=== PATIENT | female | born 1940 | race Caucasian/White ===

== ENCOUNTER 2017-02-25 09:28 | Emergency (ER) | payer MEDICARE, BC ==
[2017-02-25 10:07] LABS: #Lymphocytes 0.8 thou/uL (1.20-3.40); #Monocytes 0.8 thou/uL (0.11-0.59); #Neutrophils 4.8 thou/uL (1.40-6.50); %Basophils 0.5 % (0.0-1.0); %Eosinophils 0.3 % (0.0-10.0); %Lymphocytes 12.4 % (21.0-51.0); %Monocytes 11.6 % (0.0-10.0); %Neutrophils 75.3 % (42.0-75.0); Hemoglobin 11.7 g/dL (12.0-16.0); Mean Corpuscular HGB CONC 31.7 g/dL (32.0-36.0); Mean Corpuscular Hemoglobin 28.5 pg (27.0-31.0); Mean Corpuscular Volume 89.9 fl (81.0-99.0); Mean Platelet Volume 6.6 fL (7.4-10.4); Platelet Count 156 thou/uL (130-400); RBC Distribution Width 13.6 % (11.5-14.5); Red Blood Cell (RBC) Count 4.09 mill/uL (4.20-5.40); White Blood Cell (WBC) Count 6.4 thou/uL (4.8-10.8)
[2017-02-25 10:29] LABS: ALT (SGPT) 7 U/L (8-55); AST (SGOT) 15 U/L (5-34); Albumin 3.8 g/dL (3.4-4.8); Alkaline Phosphatase 66 U/L (40-150); Anion Gap 16 mmol/L (10-20); BUN (Urea Nitrogen) 29 mg/dL (9.8-20.1); Bilirubin, Total 0.4 mg/dL (0.2-1.2); CK (CPK) 182 U/L (29-168); Calc. Creatinine Clearance 0 mL/min (70-130); Calcium 8.9 mg/dL (7.8-10.44); Carbon Dioxide 24 mmol/L (23-31); Chloride 104 mmol/L (98-107); Estimated GFR-MDRD 53; Globulin 2.6 g/dL (2.4-3.5); Glucose 105 mg/dL (83-110); Potassium 3.7 mmol/L (3.5-5.1); Protein, Total 6.4 g/dL (6.0-8.3); Sodium 140 mmol/L (136-145)
--- NOTE | 2017-02-25 10:31 | RAD ---
PORTABLE CHEST 1 VIEW: DATE: 02/25/17. TIME: 10: 11 a.m. HISTORY: Cough. FINDINGS: Comparison is made with the exam of 04/25/16. The heart is enlarged. The aorta is tortuous. No confluent areas of consolidation, pneumothorax, fr ank pulmonary edema, or large effusions are seen. Blunting of the costophrenic angles is stable. POS: [facility]
[2017-02-25 10:37] LABS: CKMB 0.6 ng/mL (0-6.6); Troponin I 0.019 ng/mL (< 0.028)
== END 2017-02-25 11:44 | disposition home or self-care (01) ==
LOC: ERS 09:28
DX: J11.1 Influenza due to unidentified influenza virus with other respiratory manifestations (principal); I10 Essential (primary) hypertension; J44.9 Chronic obstructive pulmonary disease, unspecified
CPT/HCPCS: 36415; 71010; 80053; 82550; 82553; 83605; 84484; 85025; 87040; 93005; 94640; 94760; J7620

== ENCOUNTER 2017-03-27 10:18 | Outpatient (CLI) | payer MEDICARE, BC | END 2017-03-27 10:19 | disposition home or self-care (01) | LOC: BICMAMMO 10:18 | PROVIDERS: ATTEND Family Medicine | DX: Z13.820 Encounter for screening for osteoporosis (principal) | CPT/HCPCS: 77080 ==

== ENCOUNTER 2017-10-23 10:50 | Outpatient (CLI) | payer MEDICARE, BC ==
--- NOTE | 2017-10-23 12:03 | RAD ---
CHEST 2 VIEWS: Date: 10/23/17 HISTORY: Dyspnea. COMPARISON: Radiograph from 2017. FINDINGS: Lungs are hypoinflated with vascular crowding. There are some nodular densities in the right lower lo be, which are new. Mild exaggerated thoracic kyphosis. IMPRESSION: Nodular opacities right lung base. This may be infectious in nature. Follow-up recommended. POS: [facility]
== END 2017-10-23 10:51 | disposition home or self-care (01) ==
LOC: RAD 10:50
PROVIDERS: ATTEND Internal Medicine
DX: R06.00 Dyspnea, unspecified (principal); R91.8 Other nonspecific abnormal finding of lung field
CPT/HCPCS: 71046

== ENCOUNTER 2017-12-13 12:30 | Inpatient (IN) | payer MEDICARE, BC ==
[2018-01-01 13:34] VITALS: BMI 30.4
--- NOTE | 2018-01-03 09:27 | HP ---
HISTORY OF PRESENT ILLNESS: The patient is a 77-year-old female with a long history of progressive p roblems with degenerative arthritis of both knees, right symptomatic more than left. She has had no injury. She has had progressive problems despite restriction of activities, and several cortisone in jections. The pain is now interfering with day to day activities, including walking, getting dressed and sleeping. PAST MEDICAL HISTORY: The patient has history of COPD, followed by Dr. Day and she has been seen and cleared for surgery by him. She also has history of atherosclerotic cardiovascular disease and has 2 stents and has been seen and cleared for surgery by Dr. Blanco. She has had a DVT and PE in the past, but is currently on no other anticoagulants other than aspirin. She also has DJD of her left knee which currently has been being managed conservatively. She lives at [facility] and use a walker most of the time for ambulation. CURRENT MEDICATIONS: Calcium, multivitamins, Bleo inhaler, simvastatin, amlodipine, iron, venlafaxin e, Uloric, Tylenol, Fiorinal, gabapentin. ALLERGIES: She is allergic to PENICILLIN. FAMILY HISTORY/SOCIAL HISTORY/REVIEW OF SYSTEMS: Otherwise unremarkable. PHYSICAL EXAMINATION: GENERAL: Reveals a healthy elderly female. HEENT: Unremarkable. NECK: Supple. CHEST: Clear. HEART: Regular rate and rhythm. ABDOMEN: Soft, nontender. PELVIC/RECTAL/BREAST: Exams are deferred. EXTREMITIES: Pertinent findings of the right knee. There is puffiness, no definite effusion. There is slight varus. There is tenderness over the medial joint line. Range of motion is 3-105 degrees. There is no instability. There are palpable distal pulses, there is a right antalgic gait. Neurovascular exam is intact. LABORATORY AND X-RAY FINDINGS: X-rays reveal degenerative narrowing medially. MRI scan reveals medi al and lateral meniscal tears with significant DJD of the medial compartment and a 2 mm step off of t he weightbearing surfaces with significant osteochondral defect. IMPRESSION: 1. Degenerative arthritis, both knees, right symptomatic more than left. 2. History of atherosclerotic cardiovascular disease. 3. History of deep venous thrombosis and pulmonary embolus. 4. Chronic obstructive pulmonary disease. PLAN: Right total knee replacement. The nature of the surgery, length of recovery, and potential co mplications such as infection, loss of motion, incomplete relief, delayed wound healing, neurovascula r injury, thromboembolic phenomena, possible transfusion, and need for revision have been discussed i n detail.
[2018-01-07] MEDS ORDERED: Vancomycin HCl 1.5 GM in Sodium Chloride 0.9% 250 ML 300 ML IVPB SCH ×2 (07:45→20:00)
[2018-01-07] MEDS ORDERED: Midazolam HCl 2 mg/2 ml Vial ONE (07:52)
[2018-01-07] MEDS ORDERED: Fentanyl 100 MCG/2 ML VIAL ONE ×2 (07:52→12:02)
[2018-01-07] MEDS ORDERED: CEFAZOLIN 2 GM/50 ML-DEXTROSE 2 GM in Premix Bag 1 BAG IVPB SCH (08:00)
[2018-01-07] MEDS ORDERED: Levofloxacin 500 mg/D5W 100 ml Premix Bag ONE (08:39)
[2018-01-07] MEDS ORDERED: Sodium Chloride 0.9% 100 ML ONE (08:39)
[2018-01-07] MEDS ORDERED: Ketorolac Tromethamine 30 MG/ML VIAL IVP PRN (08:57)
[2018-01-07] MEDS ORDERED: Ondansetron PF 4 MG/2 ML Vial IVP PRN ×2 (08:57→12:38)
[2018-01-07] MEDS ORDERED: Promethazine HCl 25 MG/ML VIAL IM PRN ×2 (08:57→10:20)
[2018-01-07] MEDS ORDERED: traMADol HCl 50 MG TAB PO PRN ×4 (08:57→12:38)
[2018-01-07] MEDS ORDERED: HYDROcodone/Acetaminophen 10/325 mg Tablet PO PRN ×2 (08:57)
[2018-01-07] MEDS ORDERED: Zolpidem Tartrate 5 MG TAB PO PRN ×2 (08:57→12:38)
[2018-01-07] MEDS ORDERED: Fentanyl 100 MCG/2 ML VIAL IV PRN (08:58)
[2018-01-07] MEDS ORDERED: Promethazine HCl 25 MG/ML VIAL SLOW IVP PRN ×2 (10:20→12:38)
[2018-01-07] MEDS ORDERED: Ondansetron HCl/PF 4 MG/2 ML Vial IVP PRN (10:20)
[2018-01-07] MEDS ORDERED: Morphine 10 MG/ML VIAL ONE (10:23)
[2018-01-07] MEDS ORDERED: Bupivacaine/Epinephrine 0.25% 30 ML VIAL ONE (10:26)
[2018-01-07] MEDS ORDERED: Tranexamic Acid 1,000 MG in Sodium Chloride 0.9% 100 ML IVPB SCH ×2 (11:45→12:38)
--- NOTE | 2018-01-07 12:04 | OP ---
DATE OF PROCEDURE: 01/07/2018 SURGEON: Buzz Fuchs M.D. FISHER HAND LINE: Carolyn Lynn PA-C. ANESTHESIA: General plus adductor canal and sciatic nerve blocks. PREOPERATIVE DIAGNOSIS: Degenerative arthritis, right knee. POSTOPERATIVE DIAGNOSIS: Degenerative arthritis, right knee. PROCEDURES: Right total knee replacement with computer-assisted navigation with cemented Neeraj Tri athlon components (#5 femoral component, #4 tibial baseplate with 11 mm CS plastic insert and all kenyatta stic A29 patellar component). NARRATIVE REPORT: After satisfactory anesthesia was induced in supine position, sequential compressi on device was placed on the non-operative leg throughout the procedure. The right leg was then prepp ed and draped in the routine sterile fashion. The right leg was elevated and exsanguinated with an E smarch bandage and the tourniquet inflated to 300 mmHg. A gently curved medial parapatellar incision was made and carried down to subcutaneous tissues and bleeding points were controlled with Bovie cau damien. A medial parapatellar arthrotomy was performed. The patella was dislocated laterally and port ions of the fat pad were excised for exposure. There was significant tricompartmental degenerative a rthritis with areas of cartilage degeneration and small areas of exposed bone. Osteophytes and menis cindy remnants removed. Using the [employer] pinless navigation system and the appropriate guides, the di stal femoral and proximal tibial articular surfaces were excised with an oscillating saw to accept th e trial components. It was felt that #5 femoral component and #4 tibial baseplate with 11 mm CS plas tic insert gave appropriate size, fit and stability. The patellar articular surface was excised to a ccept an all plastic A29 patellar component. There was good range of motion, good stability and good patellar tracking. The trial components were removed. The knee was copiously irrigated with pulsat ile lavage. The bony surfaces were thoroughly cleaned and dried. The permanent components were then cemented in a single stage using 1 package of cement premixed with 1 gram of tobramycin powder. Exc ess cement was removed. There was again good fit and stability of the components. The knee was agai n copiously irrigated. The skin was infiltrated with 30 mL of 0.25% Marcaine with epinephrine. The medial retinaculum and quadriceps mechanism was closed with interrupted #2 Vicryl and a running #2 Qu ill. Subcutaneous tissues were closed with running 0 Quill suture and the skin was closed with runni ng subcuticular 3-0 Monoderm and SurgiSeal skin adhesive. A sterile bulky compressive dressing was a pplied. The tourniquet was deflated after 74 minutes. The foot promptly pinked up and sequential co mpression device was placed on the operated leg. She was awakened and taken to recovery room in stab le condition. There were no apparent intraoperative complications. The estimated blood loss was les s than 100 mL.
[2018-01-07] MEDS ORDERED: diphenhydrAMINE 25 MG CAP PO PRN (12:38)
[2018-01-07] MEDS ORDERED: Acetaminophen 325 MG TAB PO PRN (12:38)
[2018-01-07] MEDS ORDERED: Fentanyl 100 MCG/2 ML VIAL SLOW IVP PRN ×2 (12:38)
[2018-01-07] MEDS ORDERED: HYDROcodone/Acetaminophen 7.5/325 mg Tablet PO PRN (12:38)
[2018-01-07] MEDS ORDERED: Nystatin Powder 15 GM BOT TOP PRN (12:38)
[2018-01-07] MEDS ORDERED: Clotrimazole 1 % Cream 30 GM TUBE TOP PRN (12:38)
[2018-01-07] MEDS ORDERED: Aspirin 81 mg Enteric Coated Tablet PO SCH (12:45)
[2018-01-07] MEDS ORDERED: Fluticasone Propionate Nasal Spray 16 gm Bottle NASAL SCH (13:00)
[2018-01-07] MEDS ORDERED: Carvedilol 3.125 MG TAB PO SCH (13:00)
[2018-01-07] MEDS ORDERED: Multivitamin W/ Minerals 1 TAB PO SCH (13:00)
[2018-01-07] MEDS ORDERED: Senokot S 8.6-50 MG TAB PO SCH (13:00)
[2018-01-07] MEDS ORDERED: Loratadine 10 MG TAB PO SCH (13:00)
[2018-01-07] MEDS ORDERED: Ferrous Gluconate 324 MG TAB PO SCH (13:00)
[2018-01-07] MEDS ORDERED: Venlafaxine XR 37.5 MG CAP PO SCH (13:00)
[2018-01-07] MEDS ORDERED: Simvastatin 40 MG TAB PO SCH ×2 (13:00→21:00)
--- NOTE | 2018-01-07 13:21 | RAD ---
RIGHT KNEE RADIOGRAPHS TWO VIEWS: Date: 01-07-18 Provided Clinical History: Post op. FINDINGS: No comparison. Post-operative changes of right total knee arthroplasty are demonstrated. Post-operati ve soft tissue gas is seen. No evidence for an acute abnormality. IMPRESSION: Post operative change as above. POS: [facility]
[2018-01-07] MEDS ORDERED: Diabetic Tussin 200 MG/10 ML UDCUP PO PRN (13:32)
[2018-01-07] MEDS ORDERED: Loperamide HCl 2 MG CAP PO PRN (13:32)
[2018-01-07] MEDS ORDERED: Eucerin (Mineral Oil/Petrolatum,White) 30 gm Jar TOP PRN (13:32)
[2018-01-07] MEDS ORDERED: hydrALAZINE 20 MG/ML VIAL SLOW IVP PRN (13:32)
[2018-01-07] MEDS ORDERED: Cepastat Lozenges 1 LOZ PO PRN (13:32)
[2018-01-07] MEDS ORDERED: Artificial Tears 18 DROP/0.9 ML EA EYE PRN (13:32)
--- NOTE | 2018-01-07 13:34 | PDOC.PN ---
- Subjective Encounter Start Date: 01/07/18 Encounter Start Time: 13:30 -: old records requested/rev Patient seen and examined. pt is admitted for right knee replacement consulted for medical management - Objective MAR Reviewed: Yes Vital Signs & Weight: Vital Signs (12 hours) Temp Pulse Resp BP Pulse Ox 01/07/18 12:45 97.8 F 73 18 147/66 H 98 Weight Weight 200 lb Additional Labs: old labs and investigation reviewed in [facility] Radiology Reviewed by me: Yes (knee xray reviewed) Phys Exam - Physical Examination Constitutional: NAD HEENT: PERRLA, moist MMs, sclera anicteric Neck: no JVD, supple Respiratory: no wheezing, no rales, no rhonchi Cardiovascular: RRR, no significant murmur, no rub Gastrointestinal: soft, non-tender, no distention, positive bowel sounds Musculoskeletal: no edema, pulses present right knee with dressing, nerve block +, cardona+ Neurological: non-focal, normal sensation, moves all 4 limbs Lymphatic: no nodes Psychiatric: normal affect, A&O x 3 Skin: no rash, normal turgor Dx/Plan (1) Status post total right knee replacement Code(s): Z96.651 - PRESENCE OF RIGHT ARTIFICIAL KNEE JOINT Status: Acute (2) Anxiety and depression Code(s): F41.9 - ANXIETY DISORDER, UNSPECIFIED; F32.9 - MAJOR DEPRESSIVE DISORDER, SINGLE EPISODE, UNSPECIFIED Status: Chronic (3) Dyslipidemia Code(s): E78.5 - HYPERLIPIDEMIA, UNSPECIFIED Status: Chronic (4) Hypertension Code(s): I10 - ESSENTIAL (PRIMARY) HYPERTENSION Status: Chronic (5) Migraine headache Code(s): G43.909 - MIGRAINE, UNSP, NOT INTRACTABLE, WITHOUT STATUS MIGRAINOSUS Status: Chronic (6) Obesity (BMI 30.0-34.9) Code(s): E66.9 - OBESITY, UNSPECIFIED Status: Chronic (7) H/O deep venous thrombosis Code(s): Z86.718 - PERSONAL HISTORY OF OTHER VENOUS THROMBOSIS AND EMBOLISM Status: Chronic (8) Chronic anticoagulation Code(s): Z79.01 - HALFWAY (CURRENT) USE OF ANTICOAGULANTS Status: Chronic (9) COPD (chronic obstructive pulmonary disease) Status: Chronic - Plan cont current plan of care, plan discussed w/ family * send urine culture * home medication reconciled * continue aspirin daily and xarelto daily * medication reviewed as below * symptomatic treatment * PT/OT as per [facility] protocol * pain controlled with pain meds * discussed with family bedside * pepcid for GI prophylaxis * nerve block as per anesthesia * code status- full code. Review of Systems - Review of Systems Eyes: negative: Pain, Vision Change, Conjunctivae Inflammation, Eyelid Inflammation, Redness, Other ENT: negative: Ear Pain, Ear Discharge, Nose Pain, Nose Discharge, Nose Congestion, Mouth Pain, Mouth Swelling, Throat Pain, Throat Swelling, Other Respiratory: negative: Cough, Dry, Shortness of Breath, Hemoptysis, SOB with Excertion, Pleuritic Pain, Sputum, Wheezing Cardiovascular: negative: chest pain, palpitations, orthopnea, paroxysmal nocturnal dyspnea, edema, light headedness, other Gastrointestinal: negative: Nausea, Vomiting, Abdominal Pain, Diarrhea, Constipation, Melena, Hematochezia, Other Genitourinary: negative: Dysuria, Frequency, Incontinence, Hematuria, Retention , Other Musculoskeletal: negative: Neck Pain, Shoulder Pain, Arm Pain, Back Pain, Hand Pain, Leg Pain, Foot Pain, Other Skin: negative: Rash, Lesions, Pablo, Bruising, Other - Medications/Allergies Allergies/Adverse Reactions: Allergies Allergy/AdvReac Type Severity Reaction Status Date / Time azithromycin Allergy Verified 01/01/18 13:34 Penicillins Allergy Verified 01/01/18 13:34 Medications: Current Medications Acetaminophen (Tylenol) 650 mg PO Q4H PRN PRN Reason: JUDD/ T > 101F; Mild Pain (1-3) Hydrocodone Bitart/Acetaminophen ([place] 7.5/325) 1 tab PO Q4H PRN PRN Reason: Mild Pain (1-3) Hydrocodone Bitart/Acetaminophen ([place] 7.5/325) 2 tab PO Q4H PRN PRN Reason: Moderate Pain (4-6) Aspirin (Ecotrin) 81 mg PO DAILY [facility] Aspirin (Ecotrin) 81 mg PO NOW [facility] Stop: 01/07/18 14:45 Candesartan Cilexetil (Atacand) 4 mg PO DAILY [facility] Candesartan Cilexetil (Atacand) 4 mg PO NOW [facility] Stop: 01/07/18 15:00 Carvedilol (Coreg) 3.125 mg PO BID [facility] Carvedilol (Coreg) 3.125 mg PO NOW [facility] Stop: 01/07/18 15:00 Clotrimazole (Lotrimin 1% Cream) 0 gm TOP BID PRN PRN Reason: Rash/Topical Irritation Diphenhydramine HCl (Benadryl) 25 mg PO Q6H PRN PRN Reason: Itching Fentanyl (Sublimaze) 50 mcg SLOW IVP Q30MIN PRN PRN Reason: Moderate Pain (4-6) Fentanyl (Sublimaze) 100 mcg SLOW IVP Q1H PRN PRN Reason: Severe Pain (7-10) Ferrous Gluconate (Fergon) 324 mg PO BID [facility] Ferrous Gluconate (Fergon) 324 mg PO NOW [facility] Stop: 01/07/18 15:00 Fluticasone Propionate (Flonase Nasal [place]) 0 gm NASAL DAILY [facility] Fluticasone Propionate (Flonase Nasal [place]) 0 gm NASAL NOW [facility] Stop: 01/07/18 15:00 Vancomycin HCl 1.5 gm/ Sodium (Chloride) 300 mls @ 200 mls/hr IVPB [facility] Stop: 01/07/18 15:00 Cefazolin Sodium/Dextrose 2 gm (/ Device) 50 mls @ 100 mls/hr IVPB [facility] Stop: 01/07/18 15:00 Ropivacaine 250 ml/ Device 250 mls @ 10 mls/hr [facility] BLCK [facility] Levofloxacin 500 mg/ Device 100 mls @ 100 mls/hr IVPB 0900 [facility] Stop: 01/08/18 09:59 Sodium Chloride (Normal Saline 0.9%) 1,000 mls @ 100 mls/hr IV .Q10H [facility] Vancomycin HCl 1.5 gm/ Sodium (Chloride) 300 mls @ 200 mls/hr IVPB 2000 [facility] Stop: 01/07/18 23:59 Iron/Minerals/Multivitamins (Theragran M) 1 tab PO DAILY [facility] Iron/Minerals/Multivitamins (Theragran M) 1 tab PO NOW [facility] Stop: 01/07/18 15:00 Ketorolac Tromethamine (Toradol) 15 mg IVP Q8HR [facility] Stop: 01/09/18 14:01 Loratadine (Claritin) 10 mg PO DAILY [facility] Loratadine (Claritin) 10 mg PO NOW [facility] Stop: 01/07/18 15:00 Meclizine HCl (Antivert) 25 mg PO QID PRN PRN Reason: Dizziness Nystatin (Mycostatin Powder) 0 gm TOP BID PRN PRN Reason: Rash/Topical Irritation Ondansetron HCl (Zofran) 4 mg IVP Q6H PRN PRN Reason: Nausea/Vomiting Promethazine HCl (Phenergan) 12.5 mg IM Q4H PRN PRN Reason: Nausea Promethazine HCl (Phenergan) 12.5 mg SLOW IVP Q4H PRN PRN Reason: Nausea/Vomiting Rivaroxaban (Xarelto) 10 mg PO DAILY [facility] Senna/Docusate Sodium (Senokot S) 2 tab PO BID [facility] Senna/Docusate Sodium (Senokot S) 2 tab PO NOW [facility] Stop: 01/07/18 15:00 Simvastatin (Zocor) 40 mg PO DAILY [facility] Simvastatin (Zocor) 40 mg PO NOW [facility] Stop: 01/07/18 15:00 Sodium Chloride (Flush - Normal Saline) 10 ml IVF PRN PRN PRN Reason: Saline Flush Tramadol HCl (Ultram) 100 mg PO Q6H PRN PRN Reason: Moderate to Severe Pain (6-10) Tramadol HCl (Ultram) 50 mg PO Q6H PRN PRN Reason: Mild-Moderate Pain (1-5) Venlafaxine HCl (Effexor Xr) 37.5 mg PO DAILY [facility] Venlafaxine HCl (Effexor Xr) 37.5 mg PO NOW [facility] Stop: 01/07/18 15:00 Zolpidem Tartrate (Ambien) 5 mg PO HSPRN PRN PRN Reason: Insomnia
[2018-01-07] MEDS ORDERED: Ropivacaine 0.5% HCl/PF (150 MG/30 ML VIAL) ONE (14:18)
[2018-01-07] MEDS ORDERED: Bupivacaine 0.25% HCL 30 ML VIAL ONE (14:18)
[2018-01-07] MEDS: Ketorolac Tromethamine 30 MG/ML VIAL IVP SCH ×2 (14:25→21:25)
[2018-01-07] MEDS: HYDROcodone/Acetaminophen 7.5/325 mg Tablet PO PRN ×2 (14:26→18:37)
[2018-01-07] MEDS: Sodium Chloride 0.9% 1,000 ML IV SCH ×2 (14:29→22:15)
[2018-01-07] MEDS ORDERED: Ketorolac Tromethamine 30 MG/ML VIAL ONE (15:17)
[2018-01-07] MEDS ORDERED: PROPOFOL 200 MG/20 ML VIAL ONE (15:17)
[2018-01-07] MEDS ORDERED: Ondansetron PF 4 MG/2 ML Vial ONE (15:17)
[2018-01-07] MEDS: Meclizine HCl 25 MG TAB PO PRN (15:51)
[2018-01-07] MEDS: Carvedilol 3.125 MG TAB PO SCH (20:16)
[2018-01-07] MEDS: Famotidine 20 MG TAB PO SCH (20:16)
[2018-01-07] MEDS: Senokot S 8.6-50 MG TAB PO SCH (20:17)
[2018-01-07] MEDS: Venlafaxine XR 37.5 MG CAP PO SCH (20:17)
[2018-01-07] MEDS: Ferrous Gluconate 324 MG TAB PO SCH (20:17)
[2018-01-08 05:24] LABS: Hemoglobin 10.1 g/dL (12.0-16.0); Mean Corpuscular HGB CONC 30.5 g/dL (32.0-36.0); Mean Corpuscular Hemoglobin 27.4 pg (27.0-31.0); Mean Corpuscular Volume 89.9 fL (78.0-98.0); Platelet Count 185 thou/uL (130-400); RBC Distribution Width 13.7 % (11.5-14.5); Red Blood Cell (RBC) Count 3.67 mill/uL (4.20-5.40); White Blood Cell (WBC) Count 7.7 thou/uL (4.8-10.8)
[2018-01-08] MEDS: Ketorolac Tromethamine 30 MG/ML VIAL IVP SCH ×3 (06:43→21:26)
[2018-01-08] MEDS: HYDROcodone/Acetaminophen 7.5/325 mg Tablet PO PRN ×2 (08:22→12:33)
[2018-01-08] MEDS: Rivaroxaban 10 MG TAB PO SCH (08:26)
[2018-01-08] MEDS: Famotidine 20 MG TAB PO SCH ×2 (08:27→21:24)
[2018-01-08] MEDS: Multivitamin W/ Minerals 1 TAB PO SCH (08:27)
[2018-01-08] MEDS: Carvedilol 3.125 MG TAB PO SCH ×2 (08:27→21:25)
[2018-01-08] MEDS: Aspirin 81 mg Enteric Coated Tablet PO SCH (08:27)
[2018-01-08] MEDS: Fluticasone Propionate Nasal Spray 16 gm Bottle NASAL SCH (08:29)
[2018-01-08] MEDS: Ferrous Gluconate 324 MG TAB PO SCH ×2 (08:29→21:24)
[2018-01-08] MEDS: Sodium Chloride 0.9% 1,000 ML IV SCH ×2 (08:34→18:09)
[2018-01-08] MEDS: Senokot S 8.6-50 MG TAB PO SCH ×2 (08:35→21:25)
[2018-01-08] MEDS: Loratadine 10 MG TAB PO SCH (08:35)
[2018-01-08] MEDS ORDERED: Simvastatin 40 MG TAB PO SCH (09:00)
[2018-01-08] MEDS: Meclizine HCl 25 MG TAB PO PRN (09:00)
[2018-01-08] MEDS ORDERED: Venlafaxine XR 37.5 MG CAP PO SCH (09:00)
--- NOTE | 2018-01-08 09:50 | PDOC.PN ---
- Subjective Encounter Start Date: 01/08/18 Encounter Start Time: 07:40 Patient seen and examined. No new complaints. No overnight events - Objective Resuscitation Status: Resuscitation Status FULL:Full Resuscitation MAR Reviewed: Yes Vital Signs & Weight: Vital Signs (12 hours) Temp Pulse Resp BP Pulse Ox 01/08/18 08:33 98.8 F 80 15 152/82 H 92 L 01/08/18 04:31 97.8 F 70 20 117/69 94 L 01/07/18 23:37 98 F 66 20 107/66 95 Weight Weight 200 lb I&O: 01/07/18 01/08/18 01/09/18 06:59 06:59 06:59 Intake Total 1341.0 1560 Output Total 1100 900 Balance 241.0 660 Result Diagrams: 01/08/18 04:29 Phys Exam - Physical Examination Constitutional: NAD HEENT: PERRLA, moist MMs, sclera anicteric Neck: no JVD, supple Respiratory: no wheezing, no rales, no rhonchi Cardiovascular: RRR, no significant murmur, no rub Gastrointestinal: soft, non-tender, no distention, positive bowel sounds right knee with dressing, nerve block+ Musculoskeletal: no edema, pulses present Neurological: non-focal, normal sensation, moves all 4 limbs Psychiatric: normal affect, A&O x 3 Skin: no rash, normal turgor Dx/Plan (1) Status post total right knee replacement Code(s): Z96.651 - PRESENCE OF RIGHT ARTIFICIAL KNEE JOINT Status: Acute (2) Anxiety and depression Code(s): F41.9 - ANXIETY DISORDER, UNSPECIFIED; F32.9 - MAJOR DEPRESSIVE DISORDER, SINGLE EPISODE, UNSPECIFIED Status: Chronic (3) Dyslipidemia Code(s): E78.5 - HYPERLIPIDEMIA, UNSPECIFIED Status: Chronic (4) Hypertension Code(s): I10 - ESSENTIAL (PRIMARY) HYPERTENSION Status: Chronic (5) Migraine headache Code(s): G43.909 - MIGRAINE, UNSP, NOT INTRACTABLE, WITHOUT STATUS MIGRAINOSUS Status: Chronic (6) Obesity (BMI 30.0-34.9) Code(s): E66.9 - OBESITY, UNSPECIFIED Status: Chronic (7) H/O deep venous thrombosis Code(s): Z86.718 - PERSONAL HISTORY OF OTHER VENOUS THROMBOSIS AND EMBOLISM Status: Chronic (8) Chronic anticoagulation Code(s): Z79.01 - STOVE FITTER (CURRENT) USE OF ANTICOAGULANTS Status: Chronic (9) COPD (chronic obstructive pulmonary disease) Status: Chronic (10) Anemia, normocytic normochromic Code(s): D64.9 - ANEMIA, UNSPECIFIED Status: Chronic - Plan cont current plan of care, PT/OT * medically stable * medication reviewed as below * symptomatic treatment * continue PT/OT * nerve block as per anesthesia Review of Systems - Review of Systems ENT: negative: Ear Pain, Ear Discharge, Nose Pain, Nose Discharge, Nose Congestion, Mouth Pain, Mouth Swelling, Throat Pain, Throat Swelling, Other Respiratory: negative: Cough, Dry, Shortness of Breath, Hemoptysis, SOB with Excertion, Pleuritic Pain, Sputum, Wheezing Cardiovascular: negative: chest pain, palpitations, orthopnea, paroxysmal nocturnal dyspnea, edema, light headedness, other Gastrointestinal: negative: Nausea, Vomiting, Abdominal Pain, Diarrhea, Constipation, Melena, Hematochezia, Other Genitourinary: negative: Dysuria, Frequency, Incontinence, Hematuria, Retention , Other Musculoskeletal: negative: Neck Pain, Shoulder Pain, Arm Pain, Back Pain, Hand Pain, Leg Pain, Foot Pain, Other Skin: negative: Rash, Lesions, Pablo, Bruising, Other - Medications/Allergies Allergies/Adverse Reactions: Allergies Allergy/AdvReac Type Severity Reaction Status Date / Time azithromycin Allergy Verified 01/01/18 13:34 Penicillins Allergy Verified 01/01/18 13:34 Medications: Current Medications Acetaminophen (Tylenol) 650 mg PO Q4H PRN PRN Reason: JUDD/ T > 101F; Mild Pain (1-3) Hydrocodone Bitart/Acetaminophen ([place] 7.5/325) 1 tab PO Q4H PRN PRN Reason: Mild Pain (1-3) Hydrocodone Bitart/Acetaminophen ([place] 7.5/325) 2 tab PO Q4H PRN PRN Reason: Moderate Pain (4-6) Last Admin: 01/08/18 08:22 Dose: 2 tab Albuterol/Ipratropium (Duoneb) 3 ml NEB [id number] PRN PRN Reason: SOB &/or Wheezing Artificial Tears (Tears Naturale) 2 drop EA EYE PRN PRN PRN Reason: Dry Eyes Aspirin (Ecotrin) 81 mg PO DAILY [facility] Last Admin: 01/08/18 08:27 Dose: 81 mg Candesartan Cilexetil (Atacand) 4 mg PO DAILY [facility] Carvedilol (Coreg) 3.125 mg PO BID [facility] Last Admin: 01/08/18 08:27 Dose: 3.125 mg Clotrimazole (Lotrimin 1% Cream) 0 gm TOP BID PRN PRN Reason: Rash/Topical Irritation Diphenhydramine HCl (Benadryl) 25 mg PO Q6H PRN PRN Reason: Itching Famotidine (Pepcid) 20 mg PO BID [facility] Last Admin: 01/08/18 08:27 Dose: 20 mg Fentanyl (Sublimaze) 50 mcg SLOW IVP Q30MIN PRN PRN Reason: Moderate Pain (4-6) Fentanyl (Sublimaze) 100 mcg SLOW IVP Q1H PRN PRN Reason: Severe Pain (7-10) Ferrous Gluconate (Fergon) 324 mg PO BID [facility] Last Admin: 01/08/18 08:29 Dose: 324 mg Fluticasone Propionate (Flonase Nasal [place]) 0 gm NASAL DAILY [facility] Last Admin: 01/08/18 08:29 Dose: 1 spr Guaifenesin (Robitussin Sf) 200 mg PO Q4H PRN PRN Reason: Cough Hydralazine HCl (Apresoline) 10 mg SLOW IVP Q4H PRN PRN Reason: SBP Greater Than 170 Ropivacaine 250 ml/ Device 250 mls @ 10 mls/hr NERVE BLCK INF [facility] Levofloxacin 500 mg/ Device 100 mls @ 100 mls/hr IVPB 0900 [facility] Stop: 01/08/18 09:59 Last Admin: 01/08/18 08:25 Dose: 100 mls Sodium Chloride (Normal Saline 0.9%) 1,000 mls @ 100 mls/hr IV .Q10H [facility] Last Admin: 01/08/18 08:34 Dose: Not Given Iron/Minerals/Multivitamins (Theragran M) 1 tab PO DAILY [facility] Last Admin: 01/08/18 08:27 Dose: 1 tab Ketorolac Tromethamine (Toradol) 15 mg IVP Q8HR [facility] Stop: 01/09/18 14:01 Last Admin: 01/08/18 06:43 Dose: 15 mg Loperamide HCl (Imodium) 2 mg PO PRN PRN PRN Reason: Diarrhea/Loose Stools Loratadine (Claritin) 10 mg PO DAILY [facility] Last Admin: 01/08/18 08:35 Dose: Not Given Meclizine HCl (Antivert) 25 mg PO QID PRN PRN Reason: Dizziness Last Admin: 01/08/18 09:00 Dose: 25 mg Mineral Oil/White Petrolatum (Eucerin Cream) 0 gm TOP BIDPRN PRN PRN Reason: Dry Skin Nystatin (Mycostatin Powder) 0 gm TOP BID PRN PRN Reason: Rash/Topical Irritation Ondansetron HCl (Zofran) 4 mg IVP Q6H PRN PRN Reason: Nausea/Vomiting Promethazine HCl (Phenergan) 12.5 mg IM Q4H PRN PRN Reason: Nausea Promethazine HCl (Phenergan) 12.5 mg SLOW IVP Q4H PRN PRN Reason: Nausea/Vomiting Rivaroxaban (Xarelto) 10 mg PO DAILY [facility] Last Admin: 01/08/18 08:26 Dose: 10 mg Senna/Docusate Sodium (Senokot S) 2 tab PO BID [facility] Last Admin: 01/08/18 08:35 Dose: Not Given Simvastatin (Zocor) 40 mg PO [facility] Sodium Chloride (Flush - Normal Saline) 10 ml IVF PRN PRN PRN Reason: Saline Flush Throat Lozenges (Cepastat Lozenges) 1 danae PO Q2H PRN PRN Reason: Sore Throat Tramadol HCl (Ultram) 100 mg PO Q6H PRN PRN Reason: Moderate to Severe Pain (6-10) Tramadol HCl (Ultram) 50 mg PO Q6H PRN PRN Reason: Mild-Moderate Pain (1-5) Venlafaxine HCl (Effexor Xr) 37.5 mg PO [facility] Last Admin: 01/07/18 20:17 Dose: 37.5 mg Zolpidem Tartrate (Ambien) 5 mg PO HSPRN PRN PRN Reason: Insomnia
[2018-01-08] MEDS: Ropivacaine HCl/PF 250 ML in Premix Bag 1 BAG NERVE BLCK SCH (12:35)
[2018-01-08] MEDS: Simvastatin 40 MG TAB PO SCH (21:25)
[2018-01-08] MEDS: Venlafaxine XR 37.5 MG CAP PO SCH (21:26)
[2018-01-09] MEDS: Sodium Chloride 0.9% 1,000 ML IV SCH ×2 (03:45→14:27)
[2018-01-09] MEDS: Ketorolac Tromethamine 30 MG/ML VIAL IVP SCH ×2 (06:52→14:42)
[2018-01-09] MEDS: Fluticasone Propionate Nasal Spray 16 gm Bottle NASAL SCH (09:06)
[2018-01-09] MEDS: Rivaroxaban 10 MG TAB PO SCH (09:07)
[2018-01-09] MEDS: Multivitamin W/ Minerals 1 TAB PO SCH (09:08)
[2018-01-09] MEDS: Ferrous Gluconate 324 MG TAB PO SCH ×2 (09:08→20:37)
[2018-01-09] MEDS: Senokot S 8.6-50 MG TAB PO SCH ×2 (09:08→20:36)
[2018-01-09] MEDS: Carvedilol 3.125 MG TAB PO SCH ×2 (09:09→20:37)
[2018-01-09] MEDS: Famotidine 20 MG TAB PO SCH ×2 (09:09→20:37)
[2018-01-09] MEDS: Aspirin 81 mg Enteric Coated Tablet PO SCH (09:09)
[2018-01-09] MEDS: Loratadine 10 MG TAB PO SCH (09:23)
--- NOTE | 2018-01-09 10:19 | PDOC.PN ---
- Subjective Encounter Start Date: 01/09/18 Encounter Start Time: 08:20 Patient seen and examined. No new complaints. No overnight events - Objective Resuscitation Status: Resuscitation Status FULL:Full Resuscitation MAR Reviewed: Yes Vital Signs & Weight: Vital Signs (12 hours) Temp Pulse Resp BP Pulse Ox 01/09/18 07:15 98.8 F 89 16 154/76 H 92 L 01/09/18 04:56 98.7 F 88 19 163/84 H 93 L 01/09/18 00:34 98.3 F 87 17 135/77 93 L Weight Admit Weight 200 lb Weight 200 lb I&O: 01/08/18 01/09/18 01/10/18 06:59 06:59 06:59 Intake Total 1341.0 2610.5 960 Output Total 1100 1700 1925 Balance 241.0 910.5 -965 Result Diagrams: 01/08/18 04:29 Phys Exam - Physical Examination Constitutional: NAD HEENT: PERRLA, moist MMs, sclera anicteric Neck: no JVD, supple Respiratory: no wheezing, no rales, no rhonchi Cardiovascular: RRR, no significant murmur, no rub Gastrointestinal: soft, non-tender, no distention, positive bowel sounds Musculoskeletal: no edema, pulses present rightt knee with dressing, nerve block+, cardona+ Neurological: non-focal, normal sensation Psychiatric: normal affect, A&O x 3 Skin: no rash, normal turgor Dx/Plan (1) Status post total right knee replacement Code(s): Z96.651 - PRESENCE OF RIGHT ARTIFICIAL KNEE JOINT Status: Acute (2) Anxiety and depression Code(s): F41.9 - ANXIETY DISORDER, UNSPECIFIED; F32.9 - MAJOR DEPRESSIVE DISORDER, SINGLE EPISODE, UNSPECIFIED Status: Chronic (3) Dyslipidemia Code(s): E78.5 - HYPERLIPIDEMIA, UNSPECIFIED Status: Chronic (4) Hypertension Code(s): I10 - ESSENTIAL (PRIMARY) HYPERTENSION Status: Chronic (5) Migraine headache Code(s): G43.909 - MIGRAINE, UNSP, NOT INTRACTABLE, WITHOUT STATUS MIGRAINOSUS Status: Chronic (6) Obesity (BMI 30.0-34.9) Code(s): E66.9 - OBESITY, UNSPECIFIED Status: Chronic (7) H/O deep venous thrombosis Code(s): Z86.718 - PERSONAL HISTORY OF OTHER VENOUS THROMBOSIS AND EMBOLISM Status: Chronic (8) Chronic anticoagulation Code(s): Z79.01 - PHARMACY ANCILLARY (CURRENT) USE OF ANTICOAGULANTS Status: Chronic (9) COPD (chronic obstructive pulmonary disease) Status: Chronic (10) Anemia, normocytic normochromic Code(s): D64.9 - ANEMIA, UNSPECIFIED Status: Chronic - Plan 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 Review of Systems - Review of Systems ENT: negative: Ear Pain, Ear Discharge, Nose Pain, Nose Discharge, Nose Congestion, Mouth Pain, Mouth Swelling, Throat Pain, Throat Swelling, Other Respiratory: negative: Cough, Dry, Shortness of Breath, Hemoptysis, SOB with Excertion, Pleuritic Pain, Sputum, Wheezing Cardiovascular: negative: chest pain, palpitations, orthopnea, paroxysmal nocturnal dyspnea, edema, light headedness, other Gastrointestinal: negative: Nausea, Vomiting, Abdominal Pain, Diarrhea, Constipation, Melena, Hematochezia, Other Genitourinary: negative: Dysuria, Frequency, Incontinence, Hematuria, Retention , Other Musculoskeletal: negative: Neck Pain, Shoulder Pain, Arm Pain, Back Pain, Hand Pain, Leg Pain, Foot Pain, Other Skin: negative: Rash, Lesions, Pablo, Bruising, Other - Medications/Allergies Allergies/Adverse Reactions: Allergies Allergy/AdvReac Type Severity Reaction Status Date / Time azithromycin Allergy Verified 01/01/18 13:34 Penicillins Allergy Verified 01/01/18 13:34 Medications: Current Medications Acetaminophen (Tylenol) 650 mg PO Q4H PRN PRN Reason: JUDD/ T > 101F; Mild Pain (1-3) Hydrocodone Bitart/Acetaminophen ([place] 7.5/325) 1 tab PO Q4H PRN PRN Reason: Mild Pain (1-3) Hydrocodone Bitart/Acetaminophen ([place] 7.5/325) 2 tab PO Q4H PRN PRN Reason: Moderate Pain (4-6) Last Admin: 01/08/18 12:33 Dose: 2 tab Albuterol/Ipratropium (Duoneb) 3 ml NEB [id number] PRN PRN Reason: SOB &/or Wheezing Artificial Tears (Tears Naturale) 2 drop EA EYE PRN PRN PRN Reason: Dry Eyes Aspirin (Ecotrin) 81 mg PO DAILY ON LICENSE OF [facility] Last Admin: 01/09/18 09:09 Dose: 81 mg Candesartan Cilexetil (Atacand) 4 mg PO DAILY ON LICENSE OF [facility] Last Admin: 01/09/18 09:10 Dose: 4 mg Carvedilol (Coreg) 3.125 mg PO BID ON LICENSE OF [facility] Last Admin: 01/09/18 09:09 Dose: 3.125 mg Clotrimazole (Lotrimin 1% Cream) 0 gm TOP BID PRN PRN Reason: Rash/Topical Irritation Diphenhydramine HCl (Benadryl) 25 mg PO Q6H PRN PRN Reason: Itching Famotidine (Pepcid) 20 mg PO BID ON LICENSE OF [facility] Last Admin: 01/09/18 09:09 Dose: 20 mg Fentanyl (Sublimaze) 50 mcg SLOW IVP Q30MIN PRN PRN Reason: Moderate Pain (4-6) Fentanyl (Sublimaze) 100 mcg SLOW IVP Q1H PRN PRN Reason: Severe Pain (7-10) Ferrous Gluconate (Fergon) 324 mg PO BID ON LICENSE OF [facility] Last Admin: 01/09/18 09:08 Dose: 324 mg Fluticasone Propionate (Flonase Nasal [place]) 0 gm NASAL DAILY ON LICENSE OF [facility] Last Admin: 01/09/18 09:06 Dose: 1 spr Guaifenesin (Robitussin Sf) 200 mg PO Q4H PRN PRN Reason: Cough Hydralazine HCl (Apresoline) 10 mg SLOW IVP Q4H PRN PRN Reason: SBP Greater Than 170 Ropivacaine 250 ml/ Device 250 mls @ 10 mls/hr NERVE BLCK INF ON LICENSE OF [facility] Last Admin: 01/08/18 12:35 Dose: 250 mls Sodium Chloride (Normal Saline 0.9%) 1,000 mls @ 100 mls/hr IV .Q10H ON LICENSE OF [facility] Last Admin: 01/09/18 03:45 Dose: Not Given Iron/Minerals/Multivitamins (Theragran M) 1 tab PO DAILY ON LICENSE OF [facility] Last Admin: 01/09/18 09:08 Dose: 1 tab Ketorolac Tromethamine (Toradol) 15 mg IVP Q8HR ON LICENSE OF [facility] Stop: 01/09/18 14:01 Last Admin: 01/09/18 06:52 Dose: 15 mg Loperamide HCl (Imodium) 2 mg PO PRN PRN PRN Reason: Diarrhea/Loose Stools Loratadine (Claritin) 10 mg PO DAILY ON LICENSE OF [facility] Last Admin: 01/09/18 09:23 Dose: Not Given Meclizine HCl (Antivert) 25 mg PO QID PRN PRN Reason: Dizziness Last Admin: 01/08/18 09:00 Dose: 25 mg Mineral Oil/White Petrolatum (Eucerin Cream) 0 gm TOP BIDPRN PRN PRN Reason: Dry Skin Nystatin (Mycostatin Powder) 0 gm TOP BID PRN PRN Reason: Rash/Topical Irritation Ondansetron HCl (Zofran) 4 mg IVP Q6H PRN PRN Reason: Nausea/Vomiting Last Admin: 01/08/18 14:10 Dose: 4 mg Promethazine HCl (Phenergan) 12.5 mg IM Q4H PRN PRN Reason: Nausea Promethazine HCl (Phenergan) 12.5 mg SLOW IVP Q4H PRN PRN Reason: Nausea/Vomiting Rivaroxaban (Xarelto) 10 mg PO DAILY ON LICENSE OF [facility] Last Admin: 01/09/18 09:07 Dose: 10 mg Senna/Docusate Sodium (Senokot S) 2 tab PO BID ON LICENSE OF [facility] Last Admin: 01/09/18 09:08 Dose: 2 tab Simvastatin (Zocor) 40 mg PO HS ON LICENSE OF [facility] Last Admin: 01/08/18 21:25 Dose: 40 mg Sodium Chloride (Flush - Normal Saline) 10 ml IVF PRN PRN PRN Reason: Saline Flush Last Admin: 01/09/18 06:53 Dose: 10 ml Throat Lozenges (Cepastat Lozenges) 1 danae PO Q2H PRN PRN Reason: Sore Throat Tramadol HCl (Ultram) 100 mg PO Q6H PRN PRN Reason: Moderate to Severe Pain (6-10) Tramadol HCl (Ultram) 50 mg PO Q6H PRN PRN Reason: Mild-Moderate Pain (1-5) Venlafaxine HCl (Effexor Xr) 37.5 mg PO HS ON LICENSE OF [facility] Last Admin: 01/08/18 21:26 Dose: 37.5 mg Zolpidem Tartrate (Ambien) 5 mg PO HSPRN PRN PRN Reason: Insomnia
[2018-01-09] MEDS: Meclizine HCl 25 MG TAB PO PRN ×2 (10:58→17:07)
[2018-01-09] MEDS: Ropivacaine HCl/PF 250 ML in Premix Bag 1 BAG NERVE BLCK SCH (14:42)
[2018-01-09] MEDS: HYDROcodone/Acetaminophen 7.5/325 mg Tablet PO PRN ×2 (14:59→20:37)
[2018-01-09] MEDS: Venlafaxine XR 37.5 MG CAP PO SCH (20:36)
[2018-01-09] MEDS: Simvastatin 40 MG TAB PO SCH (20:36)
[2018-01-10] MEDS: Sodium Chloride 0.9% 1,000 ML IV SCH ×2 (01:48→08:35)
[2018-01-10] MEDS: HYDROcodone/Acetaminophen 7.5/325 mg Tablet PO PRN ×2 (06:13→09:39)
[2018-01-10] MEDS: Fluticasone Propionate Nasal Spray 16 gm Bottle NASAL SCH (08:30)
[2018-01-10] MEDS: Senokot S 8.6-50 MG TAB PO SCH (08:31)
[2018-01-10] MEDS: Rivaroxaban 10 MG TAB PO SCH (08:31)
[2018-01-10] MEDS: Ferrous Gluconate 324 MG TAB PO SCH (08:31)
[2018-01-10] MEDS: Multivitamin W/ Minerals 1 TAB PO SCH (08:33)
[2018-01-10] MEDS: Loratadine 10 MG TAB PO SCH (08:34)
[2018-01-10] MEDS: Famotidine 20 MG TAB PO SCH (08:34)
[2018-01-10] MEDS: Carvedilol 3.125 MG TAB PO SCH (08:35)
[2018-01-10] MEDS: Aspirin 81 mg Enteric Coated Tablet PO SCH (08:35)
--- NOTE | 2018-01-10 09:31 | PDOC.PN ---
- Subjective Encounter Start Date: 01/10/18 Encounter Start Time: 08:05 Patient seen and examined. No new complaints. No overnight events - Objective Resuscitation Status: Resuscitation Status FULL:Full Resuscitation MAR Reviewed: Yes Vital Signs & Weight: Vital Signs (12 hours) Temp Pulse Resp BP Pulse Ox 01/10/18 08:09 98.3 F 85 15 136/76 95 01/10/18 04:00 98.7 F 93 16 144/85 H 95 01/10/18 00:00 98.3 F 91 16 117/72 93 L Weight Admit Weight 200 lb Weight 200 lb I&O: 01/09/18 01/10/18 01/11/18 06:59 06:59 06:59 Intake Total 2610.5 2100 100 Output Total 1700 3075 Balance 910.5 -975 100 Result Diagrams: 01/08/18 04:29 Phys Exam - Physical Examination Constitutional: NAD HEENT: PERRLA, moist MMs, sclera anicteric Neck: no JVD, supple Respiratory: no wheezing, no rales, no rhonchi Cardiovascular: RRR, no significant murmur, no rub Gastrointestinal: soft, non-tender, no distention, positive bowel sounds Musculoskeletal: no edema, pulses present Neurological: non-focal, normal sensation, moves all 4 limbs Lymphatic: no nodes Psychiatric: normal affect, A&O x 3 Skin: no rash, normal turgor Dx/Plan (1) Status post total right knee replacement Code(s): Z96.651 - PRESENCE OF RIGHT ARTIFICIAL KNEE JOINT Status: Acute (2) Anxiety and depression Code(s): F41.9 - ANXIETY DISORDER, UNSPECIFIED; F32.9 - MAJOR DEPRESSIVE DISORDER, SINGLE EPISODE, UNSPECIFIED Status: Chronic (3) Dyslipidemia Code(s): E78.5 - HYPERLIPIDEMIA, UNSPECIFIED Status: Chronic (4) Hypertension Code(s): I10 - ESSENTIAL (PRIMARY) HYPERTENSION Status: Chronic (5) Migraine headache Code(s): G43.909 - MIGRAINE, UNSP, NOT INTRACTABLE, WITHOUT STATUS MIGRAINOSUS Status: Chronic (6) Obesity (BMI 30.0-34.9) Code(s): E66.9 - OBESITY, UNSPECIFIED Status: Chronic (7) H/O deep venous thrombosis Code(s): Z86.718 - PERSONAL HISTORY OF OTHER VENOUS THROMBOSIS AND EMBOLISM Status: Chronic (8) Chronic anticoagulation Code(s): Z79.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 Review of Systems - Review of Systems ENT: negative: Ear Pain, Ear Discharge, Nose Pain, Nose Discharge, Nose Congestion, Mouth Pain, Mouth Swelling, Throat Pain, Throat Swelling, Other Respiratory: negative: Cough, Dry, Shortness of Breath, Hemoptysis, SOB with Excertion, Pleuritic Pain, Sputum, Wheezing Cardiovascular: negative: chest pain, palpitations, orthopnea, paroxysmal nocturnal dyspnea, edema, light headedness, other Gastrointestinal: negative: Nausea, Vomiting, Abdominal Pain, Diarrhea, Constipation, Melena, Hematochezia, Other Genitourinary: negative: Dysuria, Frequency, Incontinence, Hematuria, Retention , Other Musculoskeletal: negative: Neck Pain, Shoulder Pain, Arm Pain, Back Pain, Hand Pain, Leg Pain, Foot Pain, Other Skin: negative: Rash, Lesions, Palbo, Bruising, Other - Medications/Allergies Allergies/Adverse Reactions: Allergies Allergy/AdvReac Type Severity Reaction Status Date / Time azithromycin Allergy Verified 01/01/18 13:34 Penicillins Allergy Verified 01/01/18 13:34 Medications: Current Medications Acetaminophen (Tylenol) 650 mg PO Q4H PRN PRN Reason: JUDD/ T > 101F; Mild Pain (1-3) Hydrocodone Bitart/Acetaminophen ([place] 7.5/325) 1 tab PO Q4H PRN PRN Reason: Mild Pain (1-3) Hydrocodone Bitart/Acetaminophen ([place] 7.5/325) 2 tab PO Q4H PRN PRN Reason: Moderate Pain (4-6) Last Admin: 01/10/18 06:13 Dose: 2 tab Albuterol/Ipratropium (Duoneb) 3 ml NEB [id number] PRN PRN Reason: SOB &/or Wheezing Artificial Tears (Tears Naturale) 2 drop EA EYE PRN PRN PRN Reason: Dry Eyes Aspirin (Ecotrin) 81 mg PO DAILY [facility] Last Admin: 01/10/18 08:35 Dose: 81 mg Candesartan Cilexetil (Atacand) 4 mg PO DAILY [facility] Last Admin: 01/10/18 08:35 Dose: 4 mg Carvedilol (Coreg) 3.125 mg PO BID [facility] Last Admin: 01/10/18 08:35 Dose: 3.125 mg Clotrimazole (Lotrimin 1% Cream) 0 gm TOP BID PRN PRN Reason: Rash/Topical Irritation Diphenhydramine HCl (Benadryl) 25 mg PO Q6H PRN PRN Reason: Itching Famotidine (Pepcid) 20 mg PO BID [facility] Last Admin: 01/10/18 08:34 Dose: 20 mg Fentanyl (Sublimaze) 50 mcg SLOW IVP Q30MIN PRN PRN Reason: Moderate Pain (4-6) Fentanyl (Sublimaze) 100 mcg SLOW IVP Q1H PRN PRN Reason: Severe Pain (7-10) Ferrous Gluconate (Fergon) 324 mg PO BID [facility] Last Admin: 01/10/18 08:31 Dose: 324 mg Fluticasone Propionate (Flonase Nasal [place]) 0 gm NASAL DAILY [facility] Last Admin: 01/10/18 08:30 Dose: 1 spr Guaifenesin (Robitussin Sf) 200 mg PO Q4H PRN PRN Reason: Cough Hydralazine HCl (Apresoline) 10 mg SLOW IVP Q4H PRN PRN Reason: SBP Greater Than 170 Ropivacaine 250 ml/ Device 250 mls @ 10 mls/hr NERVE BLCK INF [facility] Last Admin: 01/09/18 14:42 Dose: 250 mls Sodium Chloride (Normal Saline 0.9%) 1,000 mls @ 100 mls/hr IV .Q10H [facility] Last Admin: 01/10/18 08:35 Dose: Not Given Iron/Minerals/Multivitamins (Theragran M) 1 tab PO DAILY [facility] Last Admin: 01/10/18 08:33 Dose: 1 tab Loperamide HCl (Imodium) 2 mg PO PRN PRN PRN Reason: Diarrhea/Loose Stools Loratadine (Claritin) 10 mg PO DAILY [facility] Last Admin: 01/10/18 08:34 Dose: Not Given Meclizine HCl (Antivert) 25 mg PO QID PRN PRN Reason: Dizziness Last Admin: 01/09/18 17:07 Dose: 25 mg Mineral Oil/White Petrolatum (Eucerin Cream) 0 gm TOP BIDPRN PRN PRN Reason: Dry Skin Nystatin (Mycostatin Powder) 0 gm TOP BID PRN PRN Reason: Rash/Topical Irritation Ondansetron HCl (Zofran) 4 mg IVP Q6H PRN PRN Reason: Nausea/Vomiting Last Admin: 01/08/18 14:10 Dose: 4 mg Promethazine HCl (Phenergan) 12.5 mg IM Q4H PRN PRN Reason: Nausea Promethazine HCl (Phenergan) 12.5 mg SLOW IVP Q4H PRN PRN Reason: Nausea/Vomiting Rivaroxaban (Xarelto) 10 mg PO DAILY [facility] Last Admin: 01/10/18 08:31 Dose: 10 mg Senna/Docusate Sodium (Senokot S) 2 tab PO BID [facility] Last Admin: 01/10/18 08:31 Dose: 2 tab Simvastatin (Zocor) 40 mg PO HS [facility] Last Admin: 01/09/18 20:36 Dose: 40 mg Sodium Chloride (Flush - Normal Saline) 10 ml IVF PRN PRN PRN Reason: Saline Flush Last Admin: 01/09/18 06:53 Dose: 10 ml Throat Lozenges (Cepastat Lozenges) 1 danae PO Q2H PRN PRN Reason: Sore Throat Tramadol HCl (Ultram) 100 mg PO Q6H PRN PRN Reason: Moderate to Severe Pain (6-10) Tramadol HCl (Ultram) 50 mg PO Q6H PRN PRN Reason: Mild-Moderate Pain (1-5) Venlafaxine HCl (Effexor Xr) 37.5 mg PO HS [facility] Last Admin: 01/09/18 20:36 Dose: 37.5 mg Zolpidem Tartrate (Ambien) 5 mg PO HSPRN PRN PRN Reason: Insomnia
[2018-01-10] MEDS: Meclizine HCl 25 MG TAB PO PRN (09:39)
--- NOTE | 2018-01-10 11:45 | DIS ---
DATE OF ADMISSION: 01/07/2018 DATE OF DISCHARGE: 01/10/2018 PRIMARY CARE PHYSICIAN: Francisco benavidez. DISCHARGE DISPOSITION: jail home. PRIMARY DISCHARGE DIAGNOSIS: Status post right total knee replacement. SECONDARY DISCHARGE DIAGNOSES: Obesity with body mass index 30, migraine headache, hypertension, history of DVT, dyslipidemia, COPD, chronic anticoagulation, anxiety, depression, normocytic normochromic anemia, osteoarthritis. PRIMARY PROCEDURE/OPERATION: Right total knee replacement by Dr. Fuchs. RADIOLOGICAL INVESTIGATION: Knee x-ray. SIGNIFICANT LABORATORY DATA: WBC 7.7, hemoglobin 10.1, platelet 185. DISCHARGE MEDICATIONS: aspirin 81 mg p.o. daily, candesartan 4 mg daily, Coreg 3.125 mg p.o. b.i.d., cetirizine 10 mg daily, Flonase nasal spray daily, Antivert 25 mg p.o. q.i.d. p.r.n., Mobic 15 mg p.o. daily p.r.n., Skelaxin 800 mg p.o. q.i.d. p.r.n., Nystatin topical application b.i.d. p.r.n., Systane eyedrops daily, Zocor 40 mg p.o. daily, Effexor XR 37.5 mg daily, Ambien 5 mg at bedtime p.r.n., [place] 7.5 one or two tablets q.4 hourly p.r.n., Xarelto 10 mg p.o. daily. CONTRAINDICATIONS: None. CODE STATUS: FULL CODE. INPATIENT CONSULTANTS: Dr. Fuchs was primary while in hospital. Sound Team was consulted for medical management. TEST RESULTS PENDING ON DISCHARGE: None. ALLERGIES: AZITHROMYCIN, PENICILLIN. DISCHARGE PLAN: Post hospital, the patient will follow up with Dr. Fuchs as instructed on 01/21/2018 at 3:15 p.m. Patient will follow up with primary care physician. HOSPITAL COURSE: The patient was admitted for right total knee replacement by Dr. Fuchs. The patient has chronic osteoarthritis and failed outpatient conservative therapy, required admission for right knee replacement which was done on 01/07/2018 without any complication. Postoperatively, Sound Team was consulted for medical management. Patient's all medical problems remained stable. We continued all her home medication while in hospital as well as on discharge. The patient is planned for discharge today. Overall, the patient is medically stable for discharge. The patient is seen and examined at bedside today. Please see my progress note from today for further detail. VANDANA
[2018-01-10 12:14] VITALS: TEMP 97.8
[2018-01-10 12:21] VITALS: BP 136/76
== END 2018-01-10 13:20 | disposition home or self-care (01) | DRG 470 ==
LOC: EDBD → SJJU 01-07 06:16
PROVIDERS: ADMIT Orthopaedic Surgery; ATTEND Orthopaedic Surgery
PROC: 0SRC0J9 Replacement of Right Knee Joint with Synthetic Substitute, Cemented, Open Approach (ICD-10-PCS; principal; 2018-01-07)
DX: M17.0 Bilateral primary osteoarthritis of knee (principal); J44.9 Chronic obstructive pulmonary disease, unspecified; I25.10 Atherosclerotic heart disease of native coronary artery without angina pectoris; Z86.718 Personal history of other venous thrombosis and embolism; Z86.711 Personal history of pulmonary embolism; E66.9 Obesity, unspecified; Z68.30 Body mass index [BMI] 30.0-30.9, adult; D64.9 Anemia, unspecified; E78.5 Hyperlipidemia, unspecified; Z79.01 Long term (current) use of anticoagulants; Z95.5 Presence of coronary angioplasty implant and graft; Z88.0 Allergy status to penicillin; Z79.899 Other long term (current) drug therapy; F41.9 Anxiety disorder, unspecified; F32.9 Major depressive disorder, single episode, unspecified; Z79.82 Long term (current) use of aspirin; Z79.51 Long term (current) use of inhaled steroids
CPT/HCPCS: 36415; 85027; 87086; C1713; C1776; G8978-GP-CM; G8979-GP-CJ; J1885; J1956; J2250; J2270; J2405; J2704; J2795; J3010; J3370; J7050; S0020

== ENCOUNTER 2018-01-01 13:12 | Outpatient (CLI) | payer MEDICARE, BC ==
[2018-01-01 14:46] LABS: #Lymphocytes 2.2 thou/uL (1.20-3.40); #Monocytes 0.5 thou/uL (0.11-0.59); #Neutrophils 3.7 thou/uL (1.40-6.50); %Basophils 0.4 % (0.0-1.0); %Eosinophils 0.6 % (0.0-10.0); %Lymphocytes 34.3 % (21.0-51.0); %Monocytes 7.3 % (0.0-10.0); %Neutrophils 57.4 % (42.0-75.0); Bilirubin Small (Negative); Blood, Urine Negative (Negative); Clarity CLEAR (Clear); Glucose, Urine (Dipstick) Negative (Negative); Hemoglobin 11.9 g/dL (12.0-16.0); Leukocyte Large (Negative); Mean Corpuscular HGB CONC 31.6 g/dL (32.0-36.0); Mean Corpuscular Hemoglobin 27.8 pg (27.0-31.0); Mean Corpuscular Volume 87.9 fL (78.0-98.0); Mean Platelet Volume 6.7 fL (7.4-10.4); Nitrite Negative (Negative); Platelet Count 205 thou/uL (130-400); Protein, Urine (Dipstick) Trace mg/dL (Neg-Trace); RBC Distribution Width 13.4 % (11.5-14.5); Red Blood Cell (RBC) Count 4.27 mill/uL (4.20-5.40); Specific Gravity, Urine 1.019 (1.002-1.036); White Blood Cell (WBC) Count 6.4 thou/uL (4.8-10.8)
[2018-01-01 14:49] LABS: PTT 28.5 SEC (22.9-36.1); Prothrombin Time 13.1 SEC (12.0-14.7)
[2018-01-01 14:52] LABS: Bacteria/HPF Rare-Few HPF (None Seen); Hyaline Casts/LPF 0-3 HYALINE CAST LPF (0-3 Hyaline); Pathc Cast-AUWi Flag 0.29 (0-2.49)
[2018-01-01 15:02] LABS: Anion Gap 12 mmol/L (10-20); BUN (Urea Nitrogen) 19 mg/dL (9.8-20.1); Calc. Creatinine Clearance 0 mL/min (70-130); Calcium 9.2 mg/dL (7.8-10.44); Carbon Dioxide 27 mmol/L (23-31); Chloride 104 mmol/L (98-107); Estimated GFR-MDRD 51; Glucose 92 mg/dL (83-110); Potassium 4.1 mmol/L (3.5-5.1); Sodium 139 mmol/L (136-145)
[2018-01-01 15:09] LABS: RBC/HPF 0-3 HPF (0-3)
== END 2018-01-01 13:13 | disposition home or self-care (01) ==
LOC: LABBT 13:12
PROVIDERS: ATTEND Orthopaedic Surgery
DX: Z01.812 Encounter for preprocedural laboratory examination (principal); M17.11 Unilateral primary osteoarthritis, right knee
CPT/HCPCS: 80048; 81001; 85025; 85610; 85730; 86850; 86900; 86901; 87086

== ENCOUNTER 2018-01-24 15:15 | Outpatient (CLI) | payer MEDICARE, BC ==
--- NOTE | 2018-01-24 16:37 | RAD ---
HISTORY: Fall. Right sided rib pain. AP and oblique views right ribs obtained. Images demonstrate surgical changes seen in the distal right clavicle which is old. There is an acute right mildly displaced 9th rib fracture. No associated right sided pneumothorax seen. There is some minimal blunting of the right costophrenic angle. This may represent a tiny right sided pleural effus ion. IMPRESSION: 1. No evidence of right sided pneumothorax. 2. Acute right 9th rib fracture. POS: C
== END 2018-01-24 15:16 | disposition home or self-care (01) ==
LOC: RAD 15:15
PROVIDERS: ATTEND Nurse Practitioner Adult Health
DX: R07.81 Pleurodynia (principal); W19.XXXA Unspecified fall, initial encounter; S22.31XA Fracture of one rib, right side, initial encounter for closed fracture

== ENCOUNTER 2018-01-25 05:32 | Emergency (ER) | payer MEDICARE, BC ==
[2018-01-25] MEDS ORDERED: Meclizine HCl 25 MG TAB ONE (06:55)
--- NOTE | 2018-01-25 08:10 | CT ---
PRELIMINARY REPORT/[facility]/EMERGENTY AFTER-HOURS PROCEDURE CT Head Without Intravenous Contrast EXAM DATE/TIME: 01/25/2018 5:59 AM CLINICAL HISTORY: 77 years old, female; Injury or trauma; Fall; Initial encounter; Abrasion; Not specified; Patient HX: Presents to the ed via ems with lac to back of head S/P falling episode in the last 2-3 hours. Ems r eports PT. Is not able to recall events TECHNIQUE: Axial computed tomography images of the head/brain without intravenous contrast. COMPARISON: No relevant prior studies available. FINDINGS: Brain: No acute intracranial hemorrhage or mass effect. There is mild decreased attenuation in the periventricular white matter, likely from microvascular di sease. Suspect small old lacunar infarcts in the basal ganglia/internal capsule regions bilaterally. No definite acute infarct by CT. Ventricles: Ventricle size is normal for age. Bones/joints: No definite acute skull fracture. Sinuses: Included paranasal sinuses are essentially clear. Mastoid air cells: No significant acute finding. Soft tissues: Evidence for soft tissue injury/scalp hematoma/laceration in the high right parietal/oc cipital region. Some subcutaneous gas in this region. IMPRESSION: 1. No acute intracranial bleed or mass effect. 2. 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 3. Evidence for soft tissue injury/scalp hematoma/laceration in the high right parietal/occipital reg ion. 4. No definite acute skull fracture. Thank you for allowing us to participate in the care of your patient. Dictated and Authenticated by: Earnest Mcgee MD 01/25/2018 6:23 AM Central Time ([place] & [place]) FINAL REPORT CT BRAIN WITHOUT CONTRAST: Date: 01/25/18 FINDINGS/IMPRESSION: I agree with the preliminary report given by Jose. POS: MILADIS
== END 2018-01-25 08:24 | disposition home or self-care (01) ==
LOC: ERS 05:32
DX: S01.01XA Laceration without foreign body of scalp, initial encounter (principal); I11.0 Hypertensive heart disease with heart failure; I50.9 Heart failure, unspecified; J44.9 Chronic obstructive pulmonary disease, unspecified; I25.10 Atherosclerotic heart disease of native coronary artery without angina pectoris; Z79.899 Other long term (current) drug therapy; Z79.891 Long term (current) use of opiate analgesic; Z79.82 Long term (current) use of aspirin; W19.XXXA Unspecified fall, initial encounter
CPT/HCPCS: 12002; 70450

== ENCOUNTER 2018-06-18 08:47 | Outpatient (CLI) | payer MEDICARE, BC ==
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
== END 2018-06-18 08:48 | disposition home or self-care (01) ==
LOC: BICRAD 08:47
PROVIDERS: ATTEND Specialist
DX: M54.17 Radiculopathy, lumbosacral region (principal); M41.9 Scoliosis, unspecified; M81.0 Age-related osteoporosis without current pathological fracture; Z98.890 Other specified postprocedural states
CPT/HCPCS: 72120

== ENCOUNTER 2018-08-27 09:18 | Outpatient (CLI) | payer MEDICARE, BC ==
--- NOTE | 2018-08-27 09:56 | CT ---
Exam: Head CT without contrast HISTORY: Posttraumatic headache COMPARISON: 01/25/2018 FINDINGS: Hemorrhage: No intraparenchymal hemorrhage or extra-axial hematoma. Brain parenchyma: Cortical downs-white matter differentiation is preserved. No mass effect or midline shift. Basilar cisterns are patent.Stable hypodensities along the right caudate nucleus, right periventricular white matter as well as the right subinsular white matter. Remote insult to the brain parenchyma the region are noted. Ventricular system: Ventricles and sulci are patent and symmetric. Calvarium: Intact. Sinuses and mastoid air cells: Adequate aeration. IMPRESSION: 1. No acute intracranial process. 2. Age-appropriate atrophy. 3. No significant interval change. Stable hypodensities due to remote insult
== END 2018-08-27 09:19 | disposition home or self-care (01) ==
LOC: BICCT 09:18
PROVIDERS: ATTEND Family Medicine
DX: G44.309 Post-traumatic headache, unspecified, not intractable (principal)
CPT/HCPCS: 70450